=== PATIENT | male | born 1995 | race American Indian/Alaskan Native ===

== ENCOUNTER 2016-04-15 21:08 | Emergency (ER) | payer SELFPAY ==
[2016-04-16 00:09] LABS: Bilirubin,Urine NEG (Negative); Blood,Urine NEG (Negative); Ketones,Urine NEG (Negative); Leukocyte Esterase,Urine SM (Negative); Mucus,Urine 3+ /HPF; Nitrite,Urine NEG (Negative)
[2016-04-16] MEDS ORDERED: ZITHROMAX PO ONE (04:19)
[2016-04-16] MEDS ORDERED: XYLOCAINE 1% MPF 5 mL INFILTRATI ONE (04:19)
[2016-04-16] MEDS ORDERED: ROCEPHIN IM ONE (04:19)
--- NOTE | 2016-04-16 04:20 | Emergency Department Report ---
ED Male HPI - General Chief complaint: Urogenital-Male Stated complaint: PENILE PAIN/PAINFUL URINATION Time Seen by Provider: 04/16/16 04:06 Source: patient Mode of arrival: Ambulatory Limitations: No Limitations - History of Present Illness Initial comments: 21-year-old male sent with complaint of having positive sexual partner for chlamydia and receiving a phone call from his primary care clinic that his urine tested positive for Chlamydia. Patient states he went to get tested because his partner had called him. Patient is heterosexual one partner, has been having unprotected sex. Within the last few days and patient complaining of one week of mild dysuria, denies any penile or genitourinary lesions, denies any discharge, states he feels slight discomfort/burning when urinating. Denies any hematuria and denies any nausea or vomiting no fever or chills. MD Complaint: dysuria Onset/Timin -: week(s) Severity: mild Consistency: intermittent Improves with: none Worsens with: urination denies other symptoms - Related Data Sexually active: Yes Allergies Allergy/AdvReac Type Severity Reaction Status Date / Time No Known Allergies Allergy Verified 04/15/16 23:20 ED Review of Systems ROS: Stated complaint: PENILE PAIN/PAINFUL URINATION Other details as noted in HPI Constitutional: denies: chills, fever Eyes: denies: eye pain, eye discharge, vision change ENT: denies: ear pain, throat pain Respiratory: denies: cough, shortness of breath, wheezing Cardiovascular: denies: chest pain, palpitations Endocrine: no symptoms reported Gastrointestinal: denies: abdominal pain, nausea, diarrhea Genitourinary: dysuria (mild discomfort when urinating). denies: urgency Musculoskeletal: denies: back pain, joint swelling, arthralgia Skin: denies: rash, lesions Neurological: denies: headache, weakness, paresthesias Psychiatric: denies: anxiety, depression Hematological/Lymphatic: denies: easy bleeding, easy bruising ED Past Medical Hx - Past Medical History Previous Medical History?: No - Surgical History Past Surgical History?: No - Social History Smoking Status: Never Smoker Substance Use Type: None ED Physical Exam - General Limitations: No Limitations General appearance: alert, in no apparent distress - Head Head exam: Present: atraumatic, normocephalic - Eye Eye exam: Present: normal appearance, PERRL, EOMI - ENT ENT exam: Present: mucous membranes moist - Neck Neck exam: Present: normal inspection - Respiratory Respiratory exam: Present: normal lung sounds bilaterally. Absent: respiratory distress - Cardiovascular Cardiovascular Exam: Present: regular rate, normal rhythm. Absent: systolic murmur, diastolic murmur, rubs, gallop - GI/Abdominal GI/Abdominal exam: Present: soft, normal bowel sounds - Rectal Rectal exam: Present: deferred - exam: Present: normal inspection External exam: Present: normal external exam - Extremities Exam Extremities exam: Present: normal inspection - Back Exam Back exam: Present: normal inspection - Neurological Exam Neurological exam: Present: alert, oriented X3 - Psychiatric Psychiatric exam: Present: normal affect, normal mood - Skin Skin exam: Present: warm, dry, intact, normal color. Absent: rash ED Course Vital Signs 04/15/16 22:00 Temperature 98.1 F Pulse Rate 65 Respiratory 16 Rate Blood Pressure 120/75 O2 Sat by Pulse 100 Oximetry ED Medical Decision Making - Medical Decision Making A/P: Urethritis 1-azithromycin 1 g by mouth, ceftriaxone 250 IM 2-I instructed patient on safe sex practices 3-patient will follow up with his primary care doctor 4- patient states his partner got treated this week Critical care attestation.: If time is entered above; I have spent that time in minutes in the direct care of this critically ill patient, excluding procedure time. ED Disposition Clinical Impression: Urethritis Disposition: DISCHARGED TO HOME OR SELFCARE Is pt being admited?: No Does the pt Need Aspirin: No Condition: Stable Instructions: Nonspecific Urethritis in Men (ED), Chlamydia Infection (ED) Referrals: PRIMARY CARE, [Primary Care Provider] - 3-5 Days [facility] [Outside] - 3-5 Days [facility] [Outside] - 3-5 Days Forms: STI Treatment and Prevention Time of Disposition: 04:18
[2016-04-16 04:51] VITALS: BP 126/82
== END 2016-04-16 04:46 | disposition home or self-care (01) ==
LOC: ED 21:08
DX: N34.2 Other urethritis (principal)
CPT/HCPCS: 81001; 96372; 99283; J0696

== ENCOUNTER 2017-03-17 23:55 | Emergency (ER) | payer MEDICAID ==
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
--- NOTE | 2017-03-18 04:16 | Emergency Department Report ---
Chief Complaint: Skin Rash Stated Complaint: BODY RASH Time Seen by Provider: 03/18/17 02:35 - HPI History of Present Illness: H and he reports that he has skin discoloration, rash on his arms, neck and back for months. He denies any itching or pain. Denies any shortness of breath , chest pain, wheezing, stridor or difficulty swallowing. Denies any drooling, neck pain or stiffness. Denies any fever or chills. He said he just moved to [place] and he doesn't have a doctor and he does not know what the rash is. Patient is also requesting full STD testing and he is asymptomatic. He said he just wants to have tests done. He denies any pain. Denies any unprotected sex. No medical history. - ROS Review of Systems: All systems are negative unless stated in HPI above - Exam Vital Signs: Vital Signs 03/18/17 00:04 Temperature 98 F Pulse Rate 65 Respiratory 16 Rate Blood Pressure 129/81 O2 Sat by Pulse 100 Oximetry Physical Exam: Gen.: 21-year-old male well-nourished well-developed in no acute distress. Skin: Noted hyperpigmented and hypopigmented areas . Multiple hyperpigmented coalescing macules and thin plaques on the back. Multiple hypopigmented macules on the neck, shoulder, and arms. No erythema. No swelling. Nontender to palpate. Mouth: Moist, no pharyngeal exudate or erythema, uvula is midline tongue is normal and oral airways patent. Lungs: Clear to auscultate bilaterally no rhonchi wheezes or rales CV: S1S2 RRR no murmur EXT: No clubbing, cyanosis or edema. +2 pulses to all extremity. No neurovascular compromise MSE screening note: Focused history and physical exam performed. Due to findings the following was ordered: ED Medical Decision Making - Medical Decision Making ED course: I discussed patient that he has tinea versicolor that is asymptomatic and this is fungal rash and he will need to follow up with supervisor cleaning and annealing for management. I also discussed with him that I will prescribe an antifungal medication. I discussed his request for STD testing without any symptoms. [facility] that we will refer to him for management of skin condition and STD testing. I will also give him dermatology referral. Patient was undescended discharge instruction and treatment plan and discharged home with prescription for heat or clinical cream applied to affected areas twice daily for 14 days. Discharged home in stable condition. ED Disposition for MSE Clinical Impression: Tinea versicolor, Concern about STD in male without diagnosis Disposition: DC-01 TO HOME OR SELFCARE Is pt being admited?: No Does the pt Need Aspirin: No Condition: Stable Instructions: Safe Sex (ED), Tinea Versicolor (ED) Additional Instructions: Please refer to resources given follow-up Follow up at [facility] and other community clinic as instructed for STD testing and management of fungal skin infection. See referral to supervisor cleaning and annealing for management of fungal skin infection Use antifungal medication as prescribed Practice safe sex Prescriptions: Ketoconazole 2% [Nizoral] 15 gm TP BID 7 Days #1 tube Referrals: See, multiple resources given for outpatient clinics [Other] - 2-3 Days [facility] [Outside] - 2-3 Days ELMIRA ALBRIGHT MD [Staff Physician] - 3-5 Days Forms: Work/School Release Form(ED)
[2017-03-18 05:10] VITALS: BP 127/76
== END 2017-03-18 04:45 | disposition home or self-care (01) ==
LOC: ED 23:55
DX: B36.0 Pityriasis versicolor (principal)
CPT/HCPCS: 99282